=== PATIENT | male | born 1950 | race African-American/Black ===

== ENCOUNTER 2017-09-25 08:45 | Emergency (ER) | payer OTHER ==
[~2017-09-25] VITALS: Ht 175.3 cm; Wt 66.7 kg
[2017-09-25 09:12] VITALS: Ht 175.3 cm; Wt 66.7 kg
[2017-09-25 11:11] VITALS: BP 140/73
== END 2017-09-25 11:11 | disposition home or self-care (01) ==
LOC: ED 08:45
DX: S39.012A Strain of muscle, fascia and tendon of lower back, initial encounter (principal); Z88.0 Allergy status to penicillin; Z88.1 Allergy status to other antibiotic agents; X50.0XXA Overexertion from strenuous movement or load, initial encounter; Y93.89 Activity, other specified; Y92.89 Other specified places as the place of occurrence of the external cause; Y99.8 Other external cause status
CPT/HCPCS: J1885; Q0162